=== PATIENT | male | born 1960 | race Caucasian/White ===

== ENCOUNTER → 2024-01-07 13:28 | Outpatient (REF) | payer OTHER, SELFPAY | LOC: HWRAD 13:28 | PROVIDERS: ATTENDING PHYSICIAN Family Medicine | DX: M54.50 Low back pain, unspecified (principal); M54.9 Dorsalgia, unspecified | CPT/HCPCS: 72072; 72110; 72170 ==

== ENCOUNTER → 2024-03-26 08:50 | Outpatient (REF) | payer OTHER, SELFPAY | LOC: PAVMRI 08:50 | PROVIDERS: ATTENDING PHYSICIAN Physical Medicine & Rehabilitation; FAMILY PHYSICIAN Family Medicine | DX: M54.42 Lumbago with sciatica, left side (principal) | CPT/HCPCS: 72148 ==

== ENCOUNTER → 2024-08-07 07:07 | Outpatient (REF) | payer OTHER, SELFPAY | LOC: HWRAD 07:07 | PROVIDERS: ATTENDING PHYSICIAN Family Medicine | DX: R52 Pain, unspecified (principal) | CPT/HCPCS: 76700 ==

== ENCOUNTER → 2025-02-08 11:58 | Outpatient (REF) | payer OTHER, SELFPAY | LOC: HWRAD 11:58 | PROVIDERS: ATTENDING PHYSICIAN Physician Assistant Medical | DX: S99.911A Unspecified injury of right ankle, initial encounter (principal); S99.921A Unspecified injury of right foot, initial encounter | CPT/HCPCS: 73590; 73610; 73630 ==

== ENCOUNTER 2025-06-02 12:18 | Emergency (ER) | payer OTHER, SELFPAY ==
[2025-06-02 12:21] VITALS: BP 161/93
[2025-06-02 13:00] VITALS: BMI 29.2
[2025-06-02 13:10] VITALS: BP 143/94
[2025-06-02 13:18] LABS: Hematocrit 33.1 % (39.0-52.0); Hemoglobin 11.2 g/dL (13.0-18.0); Mean Corp Hgb Conc. 33.8 g/dL (33.0-37.0); Mean Corpuscular Volume 87.6 fL (80.0-94.0); Nucleated Red Blood Cells % 0 % (-); Platelet Count 170 10^3/uL (130-400); Red Cell Dist. Width 12.4 % (11.5-14.5)
[2025-06-02] MEDS: TORADOL 15 MG IV (13:23)
[2025-06-02 13:32] LABS: Urine Character Clear (Clear)
[2025-06-02 13:41] LABS: ALT (SGPT) 21 U/L (0-50); AST (SGOT) 21 U/L (17-59); Albumin 4.0 g/dl (3.5-5.0); Alkaline Phosphatase 65 U/L (38-126); Blood Urea Nitrogen 52 mg/dl (9-20); Calcium 9.3 mg/dl (8.4-10.2); Carbon Dioxide 24 mmol/L (22-30); Chloride 103 mmol/L (98-107); Estimated Creatinine Clearance 34 ml/min; Glucose 370 mg/dl (70-99); Lipase 151 U/L (23-300); Potassium 4.5 mmol/L (3.5-5.1); Sodium 133 mmol/L (135-145); Total Protein 6.5 g/dl (6.3-8.2); eGFR 29.58
[2025-06-02 13:42] LABS: Urine Squamous Cell 0-2 /LPF (Few)
--- NOTE | 2025-06-02 13:42 | ED.GENMED ---
History of Present Illness
General
Chief Complaint: Flank Pain
Source: patient
Exam Limitations: none
Time Seen by Provider: 06/02/25 12:38
History of Present Illness
History of Present Illness:
64-year-old male complaining of right flank pain for about 10 days. Was worse days ago. Mild at this time. No fever chills no nausea or vomiting no urinary symptoms. No pleuritic pain or positional pain.
Past History
Past History
ED Past Medical History: HTN, Hypercholesterolemia, NIDDM and Other (Renal insufficiency)
ED Past Surgical History: Orthopedic; Negative Cardiac
Social History
Tobacco: Non-smoker
Alcohol: Occasional
Drug: None
Personal: Single
Living: with family
Employment: Employed
Family History
Family History: Diabetes
Review of Systems
Review of Systems
All Other Systems: Not applicable
Constitutional: Denies fever or chills
ABD/GI: Denies abdominal pain or diarrhea
: Denies dysuria or frequency
Phy Exam
Physical Exam
Physical Exam:
GENERAL: Alert and oriented in no apparent distress
EYE: Orbits normal.
NECK: Supple, no significant adenopathy.
ENT: Pharynx without erythema
CARDIAC: Regular rate and rhythm without any obvious murmurs.
LUNGS: Clear breath sounds,normal
ABDOMEN: Soft, without focal tenderness or distention
NEUROLOGICAL: Alert and oriented , grossly non-focal
SKIN: Warm and dry, no rash or lesion, no discoloration, skin intact.
MUSCULOSKELETAL: No edema,no deformity.Good color
PSYCH: Normal and appropriate interaction.. No CVA tenderness
Course
Orders/Labs/Results
Orders:
Orders
06/02/25 12:44
IV Insert/Care/Rem.- Treatment PRN
06/02/25 13:11
Complete Blood Count/With Diff Urgent
Comprehensive Metabolic Panel Urgent
Lipase Urgent
Urinalysis Reflex To Culture Urgent
Date Specimen was Collected: 06/02/25
Time Specimen was Collected: 12:57
Urine Microscopic Reflex Cult Urgent
06/02/25 13:15
Ketorolac [Toradol] 15 mg .ROUTE .STK-MED ONE
06/02/25 13:22
Ketorolac [Toradol] 15 mg IV NOW STA
06/02/25 13:40
CT Abd/pel Without Iv Or Oral Urgent
Comment:
Reason For Exam: Right flank pain/hematuria
06/02/25 14:38
0.9% Sodium Chloride 1000 ml [Nss] 1,000 ml IV BOLUS
Abnormal Lab Results
06/02/25
13:11
RBC 3.78 L 10^6/uL
(4.70-6.10)
Hgb 11.2 L g/dL
(13.0-18.0)
Hct 33.1 L %
(39.0-52.0)
MPV 10.8 H fL
(7.4-10.4)
Sodium 133 L mmol/L
(135-145)
BUN 52 H mg/dl
(9-20)
Creatinine 2.4 H mg/dL
(0.7-1.3)
Glucose 370 H mg/dl
(70-99)
Ur Occult Blood Reflex 2+ A
(Negative)
Urine Glucose 4+ A
(Negative)
Urine Albumin (Reflex) 2+ A
(Neg - Trace)
06/02/25 13:11
06/02/25 13:11
Vital Signs
Initial and Last Documented VS:
Initial Vital Signs
Temp Pulse Resp BP Pulse Ox
98.4 F 87 20 161/93 96
06/02/25 12:21 06/02/25 12:21 06/02/25 12:21 06/02/25 12:21 06/02/25 12:21
Last Documented Vital Signs
Temp Pulse Resp BP Pulse Ox
98.4 F 72 20 141/71 100
06/02/25 12:21 06/02/25 17:08 06/02/25 17:08 06/02/25 15:29 06/02/25 17:08
MDM/Problems Addressed
Differential Diagnosis Includes:
Most suspicious of a kidney stone. Clinically stable. Doubt infectious issue. CT scan pending
*Radiology
Radiology exam reviewed: radiology read reviewed (No acute findings on CT)
*Pulse Oximetry
SaO2: 96
Oxygen Mode of Delivery: Room air
Patient hypoxic: no
*Critical Care Note
Total Time (30-74mins, 75-104mins- exclusive of procedures): Not Applicable
Data Reviewed
Review of Other/Old Records Reveals: Labs, Records and Testing
Update Note
Update Note:
Patient medically stable nontoxic. No etiology for his flank pain. No obstruction. Renal insufficiency has progressed since 2021. Blood sugar was 370 but patient ate prior and has been having some elevated blood sugars. Clinically not in DKA.
No indication for admission although these 2 issues need close follow-up. Will give a liter of fluid for the elevated BUN and creatinine. Also copy of CT report to follow-up the bladder wall thickening
ED Attending Note
-
Portions of this chart may have been created with voice recognition software.� Occasional wrong word or��sound alike� substitutions may have occurred due to the inherent limitations of voice recognition software.
Discharge Plan
Departure
Patient Disposition: Home (Routine Discharge)
Date of Disposition: 06/02/25
Time of Disposition: 15:49
Patient with high blood pressure during this ER visit?: Yes
Discharge Problem:
Right flank pain, Progressive renal insufficiency, Hyperglycemia, Diabetes, Bladder wall thickening
Instructions: Chronic kidney disease, Flank Pain (DC), High blood sugar in adults - ED (DC), BLOOD PRESSURE
Prescriptions:
No Action
ascorbic acid (vitamin C) [Vitamin C] 500 MG tablet
1,000 mg PO DAILY
atorvastatin 40 mg Tablet
40 mg PO HS
glipizide 5 mg Tablet Extended Release 24hr
5 mg PO DAILY
metformin 1,000 mg Tablet
1,000 mg PO BID
gabapentin 100 mg Capsule
100 mg PO HS
Januvia 100 mg Tablet
100 mg PO DAILY
icosapent ethyl 1 gram Capsule
2 g PO BID
Jardiance 25 mg Tablet
25 mg PO DAILY
lisinopril 10 mg tablet
10 mg PO DAILY Qty: 14 0RF
Referrals:
Zhang Soriano DO [Family Provider, Family Practice] - Follow up in 2-3 days
Activity Restrictions/Additional Instructions:
As we discussed, follow-up closely with your kidney doctor.
Recommending getting repeat kidney labs next week for your primary physician
No Advil Motrin or Aleve. Stay well-hydrated. Tylenol only for pain
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
There is some mild nonspecific thickening of your bladder wall. To consider urologic follow-up at some point for this
Interventions
Interventions:
*Risk Screen - Suicide Last Done: 06/02/25 13:01
*General Assessment Last Done: 06/02/25 12:21
*Neglect/Abuse Screening Last Done: 06/02/25 13:00
*ED- Fall Risk Assessment Last Done: 06/02/25 13:00
*ED COVID-19 Vaccine History Last Done: 06/02/25 13:00
*Nursing Disposition Last Done: 06/02/25 17:08
[place] Assessment Last Done: 06/02/25 13:00
ED-Male Genitourinary Assessment Last Done: 06/02/25 13:00
Discharge Date and Time
Discharge Date/Time: 06/02/25 17:09
Print Language: [id number]
[2025-06-02 13:43] LABS: Urine Red Blood Cell 0-2 /HPF (0-2); Urine White Cell 0-2 /HPF (0-5)
[2025-06-02 14:00] VITALS: BP 134/75
[2025-06-02 15:29] VITALS: BP 141/71
[2025-06-02] MEDS: NSS 1000 IV (15:37)
== END 2025-06-02 17:09 | disposition home or self-care (01) ==
LOC: EMR 12:18
PROVIDERS: EMERGENCY PHYSICIAN Emergency Medicine; FAMILY PHYSICIAN Family Medicine
DX: R10.9 Unspecified abdominal pain (principal); N28.9 Disorder of kidney and ureter, unspecified; E11.65 Type 2 diabetes mellitus with hyperglycemia; E78.00 Pure hypercholesterolemia, unspecified; I10 Essential (primary) hypertension; Z83.3 Family history of diabetes mellitus
CPT/HCPCS: 99284; 96374; 96361; 74176; 80053; 81003; 81015; 83690; 85025; 99283

== ENCOUNTER → 2025-07-26 14:02 | Outpatient (REF) | payer OTHER, SELFPAY | LOC: HWRAD 14:02 | PROVIDERS: ATTENDING PHYSICIAN Family Medicine | DX: Z86.39 Personal history of other endocrine, nutritional and metabolic disease (principal); R05.8 Other specified cough | CPT/HCPCS: 71046; 76536 ==

== ENCOUNTER → 2025-08-27 09:25 | Outpatient (REF) | payer OTHER, SELFPAY | LOC: HWRAD 09:25 | PROVIDERS: ATTENDING PHYSICIAN Physician Assistant Medical; FAMILY PHYSICIAN Family Medicine | DX: J98.9 Respiratory disorder, unspecified (principal) | CPT/HCPCS: 71046 ==